=== PATIENT | male | born 1955 | race Caucasian/White ===

== ENCOUNTER → 2016-12-12 | Outpatient (CLI) | payer MEDICARE | END | disposition short-term general hospital (02) | LOC: CLORTH 13:47 | PROC: 3E0U3GC Introduction of Other Therapeutic Substance into Joints, Percutaneous Approach (ICD-10-PCS; principal; 2016-12-12) | DX: Z47.89 Encounter for other orthopedic aftercare (principal); M19.012 Primary osteoarthritis, left shoulder; M75.112 Incomplete rotator cuff tear or rupture of left shoulder, not specified as traumatic; G89.29 Other chronic pain; M25.512 Pain in left shoulder | CPT/HCPCS: J1030 ==

== ENCOUNTER → 2017-01-23 | Outpatient (CLI) | payer MEDICARE | END | disposition short-term general hospital (02) | LOC: CLORTH 09:49 | DX: Z47.89 Encounter for other orthopedic aftercare (principal) ==